=== PATIENT | female | born 1980 | race Caucasian/White ===

== ENCOUNTER 2018-02-14 21:37 | Emergency (ER) | payer BC ==
[~2018-02-14] VITALS: Ht 172.7 cm; Wt 81.8 kg
[~2018-02-14 21:37] MED LIST: DICLEGIS DR 101 EACH PO; FLEXERIL10 MG PO; IRON325 MG PO; MOTRIN800 MG PO; NAPROSYN500 MG PO; PERCOCET 5/31 TABLET PO; PRENATAL TABLE1 EAC3 PO; UNISOM50 MG PO; VALIUM5 MG PO; VICODIN 5-3001 EACH PO
[2018-02-14 22:27] LABS: HEMATOCRIT 36.4 % (36.0-46.0); MCH 29.2 PG (29.0-34.0); MCV 88.6 FL (83-99); PLATELET COUNT 232 K/uL (156-360); RBC DIS.WIDTH-CV 13.3 % (11.8-14.6); RBC DIS.WIDTH-SD 43.3 % (39-53); RED BLOOD COUNT 4.11 M/uL (3.80-5.20); WHITE BLOOD COUNT 6.7 K/uL (4.1-10.2)
[2018-02-14 22:35] LABS: CHLORIDE 109 mEq/L (99-109); POTASSIUM 4.7 mEq/L (3.7-5.4); SODIUM 141 mEq/L (136-147)
[2018-02-14 22:37] LABS: GLUCOSE 94 mg/dL (70-99)
[2018-02-14 22:41] LABS: CREATININE 0.8 mg/dL (0.6-1.3); GFR ESTIMATE (CALCULATED) > 59 mL/min/
[2018-02-14 22:42] LABS: UREA NITROGEN (BUN) 12 mg/dL (9-23)
[2018-02-14 22:58] LABS: ALBUMIN 4.2 g/dL (3.2-4.8)
[2018-02-14 22:59] LABS: MAGNESIUM 2.6 mg/dL (1.3-2.7)
[2018-02-14 23:00] LABS: TROP-I INTERPRETATION NEGATIVE; TROPONIN-I < 0.01 ng/mL (0.0-0.30)
[2018-02-14 23:03] LABS: TOTAL BILIRUBIN 0.3 mg/dL (0.0-1.0)
[2018-02-14 23:04] LABS: ALKALINE PHOSPHATASE 119 IU/L (3-129); PHOSPHORUS 3.9 mg/dL (2.5-4.9)
[2018-02-14 23:06] LABS: AST (GOT) 22 IU/L (2-34); DIRECT BILIRUBIN 0.1 mg/dL (0.0-0.3)
[2018-02-14 23:07] LABS: ALT (GPT) 39 IU/L (3-49)
[2018-02-14 23:08] LABS: LIPASE 28 U/L (1.0-51.0)
[2018-02-14 23:13] LABS: QUANTITATIVE HCG < 4.0 MIU/ML
[2018-02-15 00:19] LABS: APPEARANCE CLEAR ((CLEAR)); BILIRUBIN NEGATIVE; BLOOD NEGATIVE; COLOR YELLOW ((YELLOW)); GLUCOSE (STRIP) NEGATIVE; KETONES NEGATIVE; LEUKOCYTES NEGATIVE; NITRITE NEGATIVE; PROTEIN (STRIP) NEGATIVE; SPECIFIC GRAVITY 1.028 (1.000-1.030); UCUL ADDED? NO; UROBILINOGEN 0.2 MG/DL (0.2-1.0)
[2018-02-15 00:47] VITALS: BP 107/64
== END 2018-02-15 00:51 | disposition home or self-care (01) ==
LOC: EME 21:37
PROVIDERS: Emergency Medicine
DX: R53.1 Weakness (principal); R42 Dizziness and giddiness; R41.0 Disorientation, unspecified; R20.0 Anesthesia of skin; R20.2 Paresthesia of skin; Z98.890 Other specified postprocedural states; Z98.1 Arthrodesis status; I45.10 Unspecified right bundle-branch block
CPT/HCPCS: 70450; 71045; 80048; 80076; 81003; 83690; 83735; 84100; 84484; 84702; 85027; 93005; 99281; 99285; J7030